=== PATIENT | male | born 1975 | race Asian ===

== ENCOUNTER 2019-09-01 17:43 | Inpatient (IN) | payer BC ==
[~2019-09-01] VITALS: Ht 172.7 cm; Wt 72.6 kg
[2019-09-01 17:45] VITALS: BP_SYST 147
[2019-09-01] MEDS ORDERED: NACL 0.9% 1,000 ML IV ONE (20:06)
[2019-09-01] MEDS ORDERED: MORPHINE 4 MG/ML INJ. SYRINGE IVP ONE (20:15)
[2019-09-01] MEDS ORDERED: ONDANSETRON HCL 4 MG/2 ML VIAL IVP ONE (20:15)
[2019-09-01 20:52] LABS: HEMATOCRIT 40.9 % (36-54); HEMOGLOBIN 13.7 g/dL (14.0-18.0); MEAN CORPUSCULAR HEMOGLOBIN 30 pg (27-31); MEAN CORPUSCULAR HGB CONC 34 % (32-36); MEAN CORPUSCULAR VOLUME 90 fL (79.0-98.0); PLATELET COUNT (AUTO) 68 K/uL (130-430); RED BLOOD CELL COUNT(AUTO) 4.57 MIL/uL (4.2-6.2); RED CELL DISTRIBUTION WIDTH 15.4 % (9.0-15.0)
[2019-09-01 21:03] LABS: CALCIUM 9.1 mg/dL (8.4-11.0); CREATININE 1.65 mg/dL (0.55-1.30)
[2019-09-01 21:09] LABS: ALBUMIN 3.8 g/dL (3.4-4.8); TOTAL BILIRUBIN 2.1 mg/dL (0.0-1.0)
[2019-09-01 21:10] LABS: WHITE BLOOD COUNT (AUTO) 163.5 K/uL (4.8-10.8)
[2019-09-01 21:28] LABS: BASOPHILS % (MANUAL) 0 % (0-2); BLASTS, MANUAL % 2 % (0-0); EOSINOPHILS % (MANUAL) 1 % (0-7); LYMPHOCYTES % (MANUAL) 21 % (20-46); MONOCYTES % (MANUAL) 15 % (0-11)
[2019-09-01] MEDS ORDERED: PIPERACILLIN/TAZO 3.38 GM in D5W 50 ML IV ONE (21:45)
[2019-09-01] MEDS ORDERED: POTASSIUM CHLORIDE 20 MEQ/PKT PACKET PO ONE (21:45)
[2019-09-01] MEDS ORDERED: PIPERACILLIN/TAZOBACTAM 3.375 GM/VIAL (ZOSYN) IV ONE (21:57)
[2019-09-01] MEDS ORDERED: POTASSIUM CHLORIDE 20 MEQ TAB.PRT.SR PO PRN (22:30)
[2019-09-01] MEDS ORDERED: MUPIROCIN 2% TOPICAL OINTMENT 22 GM NS PRN (22:30)
[2019-09-01] MEDS ORDERED: ZOLPIDEM TARTRATE 5 MG TABLET PO PRN (22:30)
[2019-09-01] MEDS ORDERED: ACETAMINOPHEN 325 MG TABLET PO PRN (22:30)
[2019-09-01] MEDS ORDERED: DOCUSATE SODIUM 100 MG CAPSULE PO PRN (22:30)
[2019-09-01] MEDS ORDERED: LORazepam 2 MG/ML VIAL IVP PRN (22:30)
[2019-09-01] MEDS ORDERED: ONDANSETRON HCL 4 MG/2 ML VIAL IVP PRN (22:30)
[2019-09-01] MEDS ORDERED: MAGNESIUM SULFATE 50 ML IV PRN (22:30)
[2019-09-01] MEDS ORDERED: MORPHINE 2 MG/ML INJ. SYRINGE IVP PRN ×2 (22:30)
[2019-09-01] MEDS: D5NS 1,000 ML IV SCH (23:25)
[2019-09-01 23:31] VITALS: BP_SYST 132
[2019-09-01] MEDS: METOPROLOL TARTRATE 25 MG TABLET PO SCH (23:31)
[2019-09-02 00:23] VITALS: BP_SYST 128
[2019-09-02 06:55] LABS: HEMATOCRIT 35.2 % (36-54); HEMOGLOBIN 11.8 g/dL (14.0-18.0); MEAN CORPUSCULAR HEMOGLOBIN 30 pg (27-31); MEAN CORPUSCULAR HGB CONC 33 % (32-36); MEAN CORPUSCULAR VOLUME 90 fL (79.0-98.0); RED BLOOD CELL COUNT(AUTO) 3.93 MIL/uL (4.2-6.2); RED CELL DISTRIBUTION WIDTH 15.5 % (9.0-15.0)
[2019-09-02 07:28] LABS: CALCIUM 7.9 mg/dL (8.4-11.0); POTASSIUM 3.6 mmol/L (3.5-5.1)
[2019-09-02 07:31] LABS: WHITE BLOOD COUNT (AUTO) 149.3 K/uL (4.8-10.8)
[2019-09-02 08:32] LABS: INR 1.4 (0.80-1.20)
[2019-09-02] MEDS: METOPROLOL TARTRATE 25 MG TABLET PO SCH (08:41)
[2019-09-02 08:51] LABS: PROTHROMBIN TIME 14.2 SECS (9.5-12.5)
[2019-09-02] MEDS ORDERED: HEPARIN SODIUM,PORCINE 5000 UNITS/ML VIAL SUBCUT SCH (09:00)
[2019-09-02 09:11] VITALS: BP_SYST 127
[2019-09-02 09:16] VITALS: BP_SYST 127
[2019-09-02 10:48] LABS: BILIRUBIN,URINE 1+ (NEGATIVE); CLARITY/URINE CLEAR (CLEAR); COLOR,URINE YELLOW (YELLOW); GLUCOSE,URINE NEGATIVE (NEGATIVE); KETONES,URINE NEGATIVE (NEGATIVE); LEUKOCYTE ESTERASE ,URINE NEGATIVE (NEGATIVE); NITRITE, URINE NEGATIVE (NEGATIVE); PROTEIN URINE 2+ (NEGATIVE)
[2019-09-02] MEDS: D5NS 1,000 ML IV SCH (10:48)
[2019-09-02 10:49] LABS: BLOOD, URINE TRACE (NEGATIVE)
[2019-09-02 11:01] LABS: BAND % (MANUAL) 1 % (0-6); LYMPHOCYTES % (MANUAL) 7 % (20-46); PLATELET COUNT (AUTO) 52 K/uL (130-430)
[2019-09-02 11:02] LABS: OTHER CELLS,MANUAL % 82 (0-0)
[2019-09-02 11:55] LABS: BACTERIA,URINE FEW /HPF (None Seen); MUCUS,URINE 1+ /LPF (None Seen)
[2019-09-02 12:08] LABS: BASOPHILS % (MANUAL) 0 % (0-2); EOSINOPHILS % (MANUAL) 0 % (0-7); MONOCYTES % (MANUAL) 0 % (0-11)
[2019-09-02 12:42] VITALS: BP_SYST 127
[2019-09-02] MEDS ORDERED: HYDROXYUREA 500 MG CAPSULE (HYDREA) PO ONE (13:30)
[2019-09-02 15:52] LABS: OTHER CELLS,MANUAL % 50 (0-0)
[2019-09-02 16:54] VITALS: BP_SYST 122
[2019-09-02] MEDS ORDERED: HYDROXYUREA 500 MG CAPSULE (HYDREA) PO SCH (17:00)
[2019-09-02 20:01] VITALS: BP_SYST 122
[2019-09-02] MEDS ORDERED: MEROPENEM 500 MG in NS 50 ML IV SCH (21:00)
[2019-09-03 08:06] LABS: AFP, TUMOR MARKER 2.4 ng/mL (0.0-8.3)
[2019-09-03 13:06] LABS: HEPATITIS A AB, IgM Negative (Negative); HEPATITIS B CORE AB, IgM Negative (Negative); HEPATITIS B SURFACE AG Negative (Negative)
[2019-09-03 15:12] LABS: ANTI NUCLEAR AB WITH REFLEX Positive (Negative)
[2019-09-04 13:28] LABS: ANTI-SMOOTH MUSCLE AB 8 Units (0-19)
[2019-09-05 21:20] LABS: FERRITIN 681 ng/mL (30-400)
[2019-09-05 21:25] LABS: HAPTOGLOBIN 16 mg/dL (34-200)
== END 2019-09-02 22:28 | disposition short-term general hospital (02) | DRG 834 ==
LOC: SED 17:43 → SMU 21:36
PROVIDERS: ADMIT General Practice; ATTEND General Practice
DX: C91.00 Acute lymphoblastic leukemia not having achieved remission (principal); N17.0 Acute kidney failure with tubular necrosis; E87.2 Acidosis; K81.0 Acute cholecystitis; D64.9 Anemia, unspecified; D69.6 Thrombocytopenia, unspecified; E87.6 Hypokalemia; R74.0 Nonspecific elevation of levels of transaminase and lactic acid dehydrogenase [LDH]; K21.9 Gastro-esophageal reflux disease without esophagitis; Z80.8 Family history of malignant neoplasm of other organs or systems; Z79.899 Other long term (current) drug therapy
CPT/HCPCS: 36415; 71045; 76700-TC; 80048; 80053; 80074; 81000-TC; 82105; 82728; 83010; 83036; 83516; 83605; 83690-TC; 83735-TC; 85007; 85027; 85379; 85384-TC; 85610-TC; 86038; 87040-TC; 96361; 96365; 96375; 99285; J2185; J2270; J2405; J2543; J7030; J7042